=== PATIENT | male | born 1955 | race Caucasian/White ===

== ENCOUNTER 2016-07-04 19:41 | Emergency (ER) | payer BC ==
[2016-07-04] MEDS ORDERED: Lidocaine 1% 10 MG/ML - 20 ML VIAL SUBCUT ONE (19:50)
--- NOTE | 2016-07-04 20:01 | PDOC ---
Hand / Wrist Injury HPI - General Chief Complaint: Upper Extremity Problem/Injury Stated Complaint: LEFT THUMB INJURY Date Seen by Provider: 07/04/16 Time Seen by Provider: 19:50 Source: POSITIVE: Patient Exam Limitations: POSITIVE: No limitations Nurse's Notes Reviewed & Considered: Yes - History of Present Illness Initial Comments: The patient is a 61-year-old male who presents to the emergency department with an injury to his left thumb. He states he was working on a car when his left thumb got caught between a shock spraining and the muffler. The injury occurred approximately 2:00 this afternoon. He has a laceration to the thumb and has had continued bleeding off and on since the injury. He has had a tetanus shot within the last 5 years. He denies any other associated injuries or complaints. Have you received a tetanus shot in the past 10 years?: Yes - Patient Home Medications Home Medications: Home Medications Cephalexin [Keflex] 500 mg PO TID #15 capsule 07/04/16 HYDROcodone/APAP 5/325 Tab [M[place] 5/325 Tab] 1 each PO Q6H PRN #10 tablet Pravastatin Sodium 10 mg PO DAILY 07/04/16 Tramadol HCl 50 mg PO DAILY PRN 07/04/16 Trazodone HCl 50 mg PO BEDTIME 07/04/16 - Patient Allergies Allergies/Adverse Reactions: Allergies Allergy/AdvReac Type Severity Reaction Status Date / Time No Known Allergies Allergy Verified 07/04/16 19:50 ROS - Limitations ROS Limitations: No Limitations (Review of systems otherwise noncontributory) Hand / Wrist Injury Exam - General Appearance General Appearance: POSITIVE: Alert, Cooperative, No Acute Distress - Extremities Upper Extremity: POSITIVE: Other (examination of the left thumb does reveal a semicircular laceration over the interphalangeal joint to the dorsum of his thumb, with any little movement he does have some oozing of blood, there is some swelling to the interphalangeal joint as well along with tenderness to lateral compression, normal cap refill in the tip of his thumb, no tenderness proximally at the base of his thumb) Neurovascular / Tendon: POSITIVE: Motor Normal, No Vascular Compromise, Other ( he has some chronic numbness in his thumb secondary to a neck issue) Procedure - Laceration/Wound Repair Site of Lac/Wound:: Left thumb Wound Length (cm): 2 Wound's Depth, Shape: Into subcutaneous tissue, Linear Distal CMS: Yes Skin Prep: Betadine Prep Local Anesthesia Used - Indicate Amt Used in Comment: Lidocaine 1%: Yes ( digital block) Wound Explored: Clean Wound Debrided: Minimal (He does have some superficial flap some of which was bright and some of it was left in place) Wound Repaired With: Sutures single layer Suture Size/Type: 4:0, Ethilon Number of Sutures: 5 Layer Closure?: No Drain Placement: No Sterile Dressing Applied?: Yes Splint Applied?: Yes (thumb spica) Hand / Wrist Injury Progress - Results Reviewed by me Xrays/CTs/US Reviewed by me: Yes Discussed with Radiologist: Yes Radiology Findings: Radiology interpretation of the x-ray reveals no evidence of acute fracture, my initial impression was possible fracture at the interphalangeal joint noted on the oblique view - Patient's Progress MDM / ED Course: X-rays were obtained and my initial interpretation was that there was possibly a fracture at the interphalangeal joint on the oblique view. This was subsequently read as normal with no fracture by the radiologist however. The patient's wound on his thumb was repaired. Dressing was applied. Because there did appear to be a fracture on the x-ray on my interpretation I did place the patient on Keflex 500 mg 3 times a day for 5 days. In addition he was placed in a thumb spica splint. He was advised to elevate the left thumb to reduce swelling. He is advised take ibuprofen as needed for pain and was given Marietta as needed for breakthrough pain. He is advised return to the emergency room if he develops increased pain or sign of infection. He will be advised follow-up with orthopedic surgery or primary care in 2-5 days for a wound check/ dressing change. - Consult Counseled: POSITIVE: Patient, RE: Radiology Results, RE: DX, RE: Need for F/U Patient Care Time - Estimated PCT Patient Care Time (In Minutes): 30 Vital Signs - Recent Vital Signs Vital Signs: Vital Signs (Last 8 hours) Temp Pulse Resp BP Pulse Ox 07/04/16 20:00 98.4 F 58 L 18 154/110 98 - VS Reviewed Vital Signs Reviewed: Yes Discharge Clinical Impression: Laceration, Thumb fracture Condition: Stable Prescriptions / Orders: Cephalexin [Keflex] 500 mg PO TID #15 capsule HYDROcodone/APAP 5/325 Tab [[place] 5/325 Tab] 1 each PO Q6H PRN #10 tablet PRN Reason: Pain Patient Instructions Given at Discharge: Laceration (ED), Thumb Fracture (ED) Additional Instructions: It does appear that there is a fracture in the joint of the thumb. Recommended shoes staying in the splint for now. Keep the dressing and splint dry. Elevate the left thumb to reduce swelling. Start Keflex 500 mg 3 times a day which is an antibiotic for 5 days. Ibuprofen 600 mg every 6 hours as needed for pain/swelling. [place] 5/325 one every 6 hours as needed for pain. The dressing should be changed and the wound reevaluated in 2-5 days. Sutures will need to be removed in 10-14 days. Return to the emergency room if increased pain, fever or sign of infection. Recommend follow-up with primary care or with orthopedic surgery in 2-5 days for a wound check/dressing change. Follow Up With: [facility] BURNS [Primary Care Provider] -
[2016-07-04 20:05] VITALS: RESP 18; TEMP 98.4
[2016-07-04] MEDS ORDERED: CEPHALEXIN 500 MG CAPSULE PO SCH (21:15)
[2016-07-04] MEDS ORDERED: HYDROcodone-APAP 5 MG -325 MG TABLET PO SCH (21:15)
--- NOTE | 2016-07-04 21:40 | DI ---
LEFT THUMB EXAM, 07/04/2016 7:50 PM: Clinical History: Crush injury to the thumb. Previous Exam: None at this facility. 3 views are submitted. There is no acute soft tissue, osseous, or joint abnormality. Reading: Normal left thumb exam.
== END 2016-07-04 21:32 | disposition home or self-care (01) ==
LOC: ER 19:41
DX: S62.522A Displaced fracture of distal phalanx of left thumb, initial encounter for closed fracture (principal); S61.012A Laceration without foreign body of left thumb without damage to nail, initial encounter; W31.89XA Contact with other specified machinery, initial encounter
CPT/HCPCS: 12001; 73140; 99282; J2001